=== PATIENT | male | born 1970 | race Caucasian/White ===

== ENCOUNTER 2020-01-02 21:12 | Emergency (ER) | payer BC, OTHER, SELFPAY ==
--- NOTE | ~2020-01-02 | CT_ITS ---
EXAMINATION: CT abdomen pelvis w con DATE: 01/02/2020 22:58 INDICATION: Left lower quadrant abdominal pain. TECHNIQUE: Computed tomography (CT) of the abdomen and pelvis was performed with 100 mL Omnipaque 350 intravenous contrast. Automated exposure control and iterative reconstruction technique were employe d. The dose-length product was 1425.99 mGy-cm. COMPARISON: Chest CT 08/28/2018 FINDINGS: The visualized portions of the lung bases demonstrate mild atelectasis. No pleural effusion . The heart size is normal. No pericardial effusion. The liver and spleen are normal. The changes of cholecystectomy. The pancreas and right adrenal gland are normal. There is a 1.9 cm mass in left adre nal gland without change in size, likely an adenoma. There are cysts in the kidneys measuring up to 1 .7 cm on the left. There are 2 stones in left kidney with the larger measuring 1.4 cm. There are scat tered diverticula in the colon. There is wall thickening of sigmoid colon with surrounding fat strand ing, consistent with diverticulitis. The appendix is normal. There are no dilated loops of bowel. The re are no pathologically enlarged lymph nodes. There is no free intraperitoneal fluid. There is mild lumbar spondylosis. IMPRESSION: 1. Acute sigmoid diverticulitis. No perforation or abscess. Reviewed, dictated and finalized at location A. [employer]
[2020-01-02 21:16] VITALS: BP 158/103; PULSE 108; RESP 14; TEMP 37.3; O2SAT 99
[2020-01-02 21:44] LABS: Basophils Absolute Auto 0.1 K/mm3 (0.0-0.1); Basophils Percent Auto 0.3 % (0.2-1.2); Eosinophils Absolute Auto 0.1 K/mm3 (0-0.3); Eosinophils Percent Auto 0.9 % (0-4.4); Hematocrit 48.2 % (42.0-52.0); Hemoglobin 16.8 g/dL (14.0-18.0); Immature Granulocyte Absolute 0.06 K/mm3 (0.00-0.031); Immature Granulocyte Percent A 0.4 % (0-0.5); Lymphocytes Absolute Auto 1.69 K/mm3 (0.9-3.2); Lymphocytes Percent Auto 11.6 % (18.3-44.2); Mean Corpuscular HGB Conc 34.9 g/dl (32-36); Mean Corpuscular Volume 86.1 fl (80-100); Mean Platelet Volume 8.5 fl (7.4-10.4); Monocytes Absolute Auto 1.3 K/mm3 (0.1-0.6); Monocytes Percent Auto 8.7 % (2.6-8.5); Neutrophils Absolute Auto 11.3 K/mm3 (1.3-6.7); Neutrophils Percent Auto 78.1 % (45.5-73.1); Platelet Count Result 278 k/mm3 (150-375); Red Cell Distribution Width 13.9 % (11.5-14.5); White Blood Count 14.5 K/mm3 (4.5-10.0)
[2020-01-02] MEDS: SODIUM CHLORIDE 0.9% IV 1,000 ML 999 ML IV CONT (21:45)
[2020-01-02 21:46] LABS: Add Urine Microscopic? NO; Appearance Urine Clear (Clear); Bilirubin Urine Negative (Negative); Blood Urine Negative (Negative); Color Urine Yellow (Yellow); Glucose Urine UA Negative (Negative); Ketones Urine Negative (Negative); Leukocyte Esterase Ur Negative LEU/UL (Negative); Nitrate Urine Negative (Negative); Protein Urine Negative (Negative); Specific Grav Ur 1.015 (1.001-1.035); Urobilinogen Urine Negative mg/dL (<2.0)
[2020-01-02 21:56] LABS: Alanine Aminotransferase 43 U/L (4-50); Albumin Level 4.2 g/dL (3.5-5.1); Alkaline Phosphatase 87 U/L (38-126); Anion Gap 10 mmol/L (8-16); Aspartate Amino Transferase 35 U/L (17-59); Bilirubin,Total 0.8 mg/dL (0.2-1.3); Blood Urea Nitrogen 11 mg/dL (9-20); Calcium 9.3 mg/dL (8.4-10.2); Carbon Dioxide 28 mmol/L (22-30); Chloride 101 mmol/L (98-107); Estimated CRCL calculation 94 ml/min; Estimated Glomerular Filt Rate > 60; Glucose 146 mg/dL (75-110); Lipase 222 U/L (23-300); Potassium 3.4 mmol/L (3.4-5.0); Sodium 139 mmol/L (137-145)
--- NOTE | 2020-01-02 23:49 | ED.ABDPAIN ---
HPI - Abdominal Pain General Chief Complaint: Abdominal Pain Stated Complaint: abd pain Time Seen by Provider: 01/02/20 21:19 History of Present Illness HPI narrative: Patient is a 49-year-old gentleman who presents to emergency department chief complaint of left lower quadrant abdominal pain. Patient states the pain began today states it has gotten worse feels as though his abdomen is somewhat full and states is more in the suprapubic type area but does radiate to his left lower quadrant. The patient denies diarrhea states that he took a laxative and also fiber and has had a bowel movement since then. Patient denies vomiting reports that he had no prior history of diverticulitis. Patient does report that he has had repair of a hernia in the past. Related Data Home Medications Medication Instructions Recorded Confirmed atorvastatin 80 mg tablet 80 mg PO DAILY 03/03/19 08/27/19 ezetimibe 10 mg tablet 10 mg PO DAILY 03/03/19 08/27/19 metoprolol succinate 25 mg 12.5 mg PO DAILY tablet 03/03/19 08/27/19 tablet,extended release 24 hr ticagrelor 90 mg tablet 90 mg PO BID tablet 03/03/19 08/27/19 valacyclovir 500 mg tablet 1,000 mg PO DAILY PRN tablet 03/03/19 08/27/19 testosterone cypionate 200 mg/mL 200 mg IM WEEKLY ml 08/27/19 08/27/19 intramuscular oil Allergies Allergy/AdvReac Type Severity Reaction Status Date / Time Sulfa (Sulfonamide Allergy Unknown Unknown Verified 08/27/19 13:38 Antibiotics) Review of Systems Review of Systems: Narrative: CONSTITUTIONAL: Denies fever, chills, or sweats. EYES: Denies visual changes, redness, or discharge. ENT: Denies rhinorrhea, congestion, sore throat, or otalgia. CARDIOVASCULAR: Denies chest pain, palpitations, or edema. RESPIRATORY: Denies cough or dyspnea. GASTROINTESTINAL: Denies abdominal pain, nausea, vomiting, or diarrhea. GENITOURINARY: Denies dysuria or hematuria. SKIN: Denies rash or itching. MUSCULOSKELETAL: Denies back pain, joint pain, or myalgia. NEUROLOGIC: Denies headache, numbness, or weakness. PSYCHIATRIC: Denies anxiety or depression. A 10 system review of systems was completed on the patient and is negative except for what is stated in the HPI. Nursing and ancillary documentation was reviewed. [facility] Past Medical History Medical History (Updated 01/02/20 @ 23:52 by Ruddy Olson MD) Abnormal weight gain AC joint arthropathy CAD in [place] artery Depression Essential (primary) hypertension GERD (gastroesophageal reflux disease) Heart attack (~2018) Hernia (~2014) Hypertension Intractable migraine without aura and without status migrainosus Migraines PTSD (post-traumatic stress disorder) Recurrent herpes labialis Sensitivity to sunlight Tinnitus Surgical History Surgical History History of cholecystectomy (~2014) History of eye surgery (~08/2004) PRK lasir History of facial surgery (~2016) chin reconstruction History of right knee joint replacement (~2012) History of rotator cuff surgery (~2007) left Hx of cardiac cath (~08/2018) Family History Family History Mother Diabetes mellitus Atrial fibrillation Father Hypertension Family history of alcoholism Family history of cardiovascular disease Family history of primary malignant neoplasm of liver Family history of throat cancer Grandparent Family history of cardiovascular disease Diabetes mellitus Social History Social History Smoking status: Never smoker Second hand tobacco smoke exposure: No Alcohol intake: current Substance use: never Substance use type: does not use Gender identity (if verbalized by the patient): Male Exam Narrative: Exam Narrative: GENERAL: Well-appearing, well-nourished, and in no acute distress. HEAD: Normocephalic, atraumatic. EY
[2020-01-02] MEDS: metroNIDAZOLE 250 MG TABLET 500 MG PO (23:56)
[2020-01-02] MEDS: CIPROFLOXACIN 500 MG TAB PO (23:56)
[2020-01-02] MEDS: HYDROcodone/acetaminophen (*CRX) 5-325 MG TABLET 2 TAB PO (23:57)
[2020-01-03 00:03] VITALS: BP 149/89; PULSE 78; RESP 16; TEMP 36.8; O2SAT 99
[2020-01-03 00:17] VITALS: TEMP 36.8
== END 2020-01-03 00:10 | disposition home or self-care (01) ==
PROVIDERS: Emergency Provider Emergency Medicine; PCP Family Medicine
DX: K57.32 Diverticulitis of large intestine without perforation or abscess without bleeding (principal); I25.10 Atherosclerotic heart disease of native coronary artery without angina pectoris; I10 Essential (primary) hypertension; K21.9 Gastro-esophageal reflux disease without esophagitis; I25.2 Old myocardial infarction; Z96.651 Presence of right artificial knee joint
CPT/HCPCS: 36415; 74177; 80053; 81003; 83690; 85025; 96360; 99284; A9270; J7030; Q9967

== ENCOUNTER 2020-05-14 20:25 | Emergency (ER) | payer BC, OTHER, SELFPAY ==
--- NOTE | ~2020-05-14 | XR_ITS ---
EXAMINATION: XR knee RT 3V DATE: 05/14/2020 21:28 INDICATION: Right knee pain TECHNIQUE: Three views of the right knee were obtained. COMPARISON: None. FINDINGS: There are changes of total knee arthroplasty. No fracture is identified. There is mild soft tissue swelling of the knee. IMPRESSION: 1. No acute osseous abnormality. Reviewed, dictated and finalized at location A.
[2020-05-14 20:42] VITALS: BP 163/103; PULSE 75; RESP 16; TEMP 36.4; O2SAT 97
--- NOTE | 2020-05-14 21:40 | ED.LOWEXIN ---
HPI - Extremity Injury (Lower) General Chief Complaint: Extremity Injury, Lower Stated Complaint: right knee replacement pain Time Seen by Provider: 05/14/20 21:19 Source: patient Mode of arrival: ambulatory Limitations: no limitations History of Present Illness HPI Narrative: Patient is a 50-year-old male complaining of right knee pain after it locked while trying to cross his legs prior to arrival. Patient states that he has difficulty bending his knee. Patient states he is unable to bear weight due to the pain. Patient denies any other pain or injuries. Patient states that he had a right knee replacement years ago. Related Data Home Medications Medication Instructions Recorded Confirmed atorvastatin 80 mg tablet 80 mg PO DAILY 03/03/19 01/22/20 ezetimibe 10 mg tablet 10 mg PO DAILY 03/03/19 01/22/20 metoprolol succinate 25 mg 12.5 mg PO DAILY tablet 03/03/19 01/22/20 tablet,extended release 24 hr ticagrelor 90 mg tablet 90 mg PO BID tablet 03/03/19 01/22/20 valacyclovir 500 mg tablet 1,000 mg PO DAILY PRN tablet 03/03/19 01/22/20 testosterone cypionate 200 mg/mL 200 mg IM WEEKLY ml 08/27/19 01/22/20 intramuscular oil Allergies Allergy/AdvReac Type Severity Reaction Status Date / Time Sulfa (Sulfonamide Allergy Unknown Unknown Verified 08/27/19 13:38 Antibiotics) Review of Systems Review of Systems: All systems reviewed & are unremarkable except as noted in HPI and below PMFSH Past Medical History Medical History Abnormal weight gain AC joint arthropathy CAD in [place] artery Depression Essential (primary) hypertension GERD (gastroesophageal reflux disease) Heart attack (~2018) Hernia (~2014) Hypertension Intractable migraine without aura and without status migrainosus Migraines PTSD (post-traumatic stress disorder) Recurrent herpes labialis Sensitivity to sunlight Tinnitus Surgical History Surgical History History of cholecystectomy (~2014) History of eye surgery (~08/2004) PRK lasir History of facial surgery (~2016) chin reconstruction History of right knee joint replacement (~2012) History of rotator cuff surgery (~2007) left Hx of cardiac cath (~08/2018) Family History Family History Mother Diabetes mellitus Atrial fibrillation Father Hypertension Family history of alcoholism Family history of cardiovascular disease Family history of primary malignant neoplasm of liver Family history of throat cancer Grandparent Family history of cardiovascular disease Diabetes mellitus Social History Social History Smoking status: Never smoker Second hand tobacco smoke exposure: No Alcohol intake: current Substance use: never Substance use type: does not use Gender identity (if verbalized by the patient): Male Exam Const: General: no acute distress and alert Orientation/consciousness: patient oriented x3 HENMT: Head: normal to inspection Eyes: Conjunctivae: conjunctivae normal Neck: Neck: normal visual inspection Skin: General skin exam: normal color Rashes: no rashes Neuro: General: patient oriented x3 Extrem: Other: Right knee swelling, decreased range of motion due to pain, pain on palpation of the right knee, neurovascularly intact Course Vital Signs Vital signs: Vital Signs Temperature 36.4 C L 05/14/20 20:42 Pulse Rate 75 05/14/20 20:42 Respiratory Rate 16 05/14/20 20:42 Blood Pressure 163/103 H 05/14/20 20:42 Pulse Oximetry 97 05/14/20 20:42 Temperature 36.4 C L 05/14/20 20:42 Pulse Rate 75 05/14/20 20:42 Respiratory Rate 16 05/14/20 20:42 Blood Pressure 163/103 H 05/14/20 20:42 Pulse Oximetry 97 05/14/20 20:42 MDM - Extremity Injury (Lower) MDM Narrative Medical decision catina
[2020-05-14] MEDS: HYDROcodone/acetaminophen (*CRX) 7.5-325 MG TABLET 1 TAB PO (21:56)
[2020-05-14] MEDS: diazePAM INJ (*CRX) 10 MG/2 ML SYRINGE 5 MG IM (21:56)
[2020-05-14] MEDS: KETOROLAC 30 MG/ML VIAL (*BKC) IM (21:57)
[2020-05-14 22:59] VITALS: BP 155/89; PULSE 77; RESP 20; O2SAT 97
== END 2020-05-14 23:01 | disposition home or self-care (01) ==
PROVIDERS: Emergency Provider Emergency Medicine; PCP Family Medicine
DX: S86.911A Strain of unspecified muscle(s) and tendon(s) at lower leg level, right leg, initial encounter (principal); I25.10 Atherosclerotic heart disease of native coronary artery without angina pectoris; I10 Essential (primary) hypertension; K21.9 Gastro-esophageal reflux disease without esophagitis; I25.2 Old myocardial infarction; Z96.651 Presence of right artificial knee joint; X50.9XXA Other and unspecified overexertion or strenuous movements or postures, initial encounter
CPT/HCPCS: 73562; 96372; 99284; A9270; J1885; J3360

== ENCOUNTER 2020-10-04 05:17 | Inpatient (IN) | payer BC, OTHER, SELFPAY ==
[2020-10-04] VITALS (8 sets, daily range): BP systolic 122–172; BP diastolic 69–97; PULSE 63–70; RESP 15–18; TEMP 36.3–36.9; O2SAT 93–98; BMI 39.2
--- NOTE | ~2020-10-04 | CT_ITS ---
EXAMINATION: CT abdomen pelvis w con INDICATION: Abdominal pain TECHNIQUE: Computed tomographic images of the abdomen and pelvis were obtained after the administrati on of 100 cc of Omnipaque 350 intravenous contrast. The dose-length product (DLP) was 1441.86 mGy-cm. Automated exposure control and iterative reconstruction technique were employed. COMPARISON: 01/02/2020 FINDINGS: The lung bases are clear. The heart size is normal. The gallbladder is surgically absent. T he liver, spleen, pancreas, and right adrenal gland are normal. There is a stable 1.9 cm mass of the left adrenal gland, most consistent with an adenoma. Cysts of the kidneys measure up to 1.6 cm on the left. There are nonobstructing stones measuring 3 mm and 15 mm in the left kidney. No pathologically enlarged abdominal or pelvic lymph nodes are identified. There is diverticulosis of the colon. There is wall thickening of the sigmoid colon with edematous stranding of the adjacent perisigmoid fat. No perforation or abscess is identified. There are no dilated loops of bowel. There is a supraumbilical hernia containing fat. Mild lumbar spondylosis is noted. IMPRESSION: 1. Acute uncomplicated sigmoid diverticulitis. Reviewed, dictated and finalized at location A.
--- NOTE | 2020-10-04 05:30 | PC.NURSE ---
Pt unable to provide urine sample at this time, requesting more time to try. NS infusing, given call light.
[2020-10-04] MEDS: SODIUM CHLORIDE 0.9% IV 1,000 ML 999 ML IV CONT (05:41)
--- NOTE | 2020-10-04 05:46 | ED.GENADULT ---
HPI - General Adult General Chief complaint: Abdominal Pain Stated complaint: Abd pain, bright red blood in stool Time Seen by Provider: 10/04/20 05:25 Source: RN notes reviewed History of Present Illness HPI narrative: Patient presents emergency department from home for bright red blood in the stool. Patient states he had an episode of bright red blood in his stool this morning prior to arrival he states that he has a history of diverticulitis and starting 3 days ago he began to have pain in his lower mid pelvis that felt like his previous diverticulitis states at that time he went to a fiber diet he states he is never had blood in his stool before use was to follow-up with Dr. Garcia for a colonoscopy but has not been scheduled he denies any fevers or chills, chest pain shortness of breath or any other symptoms the patient is on Plavix and aspirin Related Data Home Medications Medication Instructions Recorded Confirmed atorvastatin 80 mg tablet 80 mg PO DAILY 03/03/19 01/22/20 ezetimibe 10 mg tablet 10 mg PO DAILY 03/03/19 01/22/20 metoprolol succinate 25 mg 12.5 mg PO DAILY tablet 03/03/19 01/22/20 tablet,extended release 24 hr ticagrelor 90 mg tablet 90 mg PO BID tablet 03/03/19 01/22/20 valacyclovir 500 mg tablet 1,000 mg PO DAILY PRN tablet 03/03/19 01/22/20 testosterone cypionate 200 mg/mL 200 mg IM WEEKLY ml 08/27/19 01/22/20 intramuscular oil Allergies Allergy/AdvReac Type Severity Reaction Status Date / Time Sulfa (Sulfonamide Allergy Unknown Unknown Verified 10/04/20 05:30 Antibiotics) Review of Systems Review of Systems: Gen.: Denies fevers or chills ENT: Denies congestion Respiratory: Denies shortness of breath or cough CV: Denies chest pain or palpitations GI: See HPI denies burning, urgency, frequency or hematuria Musculoskeletal: Denies back pain or muscle pain Neuro: Denies numbness, tingling, weakness or focal weakness Skin: Denies rash Except as documented, all other systems reviewed and negative [facility] Past Medical History Medical History Abnormal weight gain AC joint arthropathy CAD in [place] artery Depression Essential (primary) hypertension GERD (gastroesophageal reflux disease) Heart attack (~2018) Hernia (~2014) Hypertension Intractable migraine without aura and without status migrainosus Migraines PTSD (post-traumatic stress disorder) Recurrent herpes labialis Sensitivity to sunlight Tinnitus Surgical History Surgical History History of cholecystectomy (~2014) History of eye surgery (~08/2004) PRK lasir History of facial surgery (~2016) chin reconstruction History of right knee joint replacement (~2012) History of rotator cuff surgery (~2007) left Hx of cardiac cath (~08/2018) Family History Family History Mother Diabetes mellitus Atrial fibrillation Father Hypertension Family history of alcoholism Family history of cardiovascular disease Family history of primary malignant neoplasm of liver Family history of throat cancer Grandparent Family history of cardiovascular disease Diabetes mellitus Social History Social History Smoking status: Never smoker Second hand tobacco smoke exposure: No Alcohol intake: current Alcohol use details: consumes 2 beers weekly Substance use: never Substance use type: does not use Gender identity (if verbalized by the patient): Male Exam Narrative: APPEARANCE: No acute distress, nontoxic, resting in bed HEENT: Normocephalic, atraumatic, OMM RESPIRATORY: No respiratory distress, clear to auscultation bilaterally with no rhonchi wheezing or rales CARDIOVASCULAR: RRR s murmur ABDOMINAL: Soft nondistended tender to palpation in mid lower abdomen no tenderness right upper quadra
[2020-10-04 05:50] LABS: Basophils Absolute Auto 0.1 K/mm3 (0.0-0.1); Basophils Percent Auto 0.8 % (0.2-1.2); Eosinophils Absolute Auto 0.2 K/mm3 (0-0.3); Eosinophils Percent Auto 2.3 % (0-4.4); Hematocrit 47.9 % (42.0-52.0); Hemoglobin 16.4 g/dL (14.0-18.0); Immature Granulocyte Absolute 0.04 K/mm3 (0.00-0.031); Immature Granulocyte Percent A 0.5 % (0-0.5); Lymphocytes Absolute Auto 1.46 K/mm3 (0.9-3.2); Lymphocytes Percent Auto 18.4 % (18.3-44.2); Mean Corpuscular HGB Conc 34.2 g/dl (32-36); Mean Corpuscular Hemoglobin 30.8 pg (26-34); Mean Corpuscular Volume 89.9 fl (80-100); Mean Platelet Volume 8.9 fl (7.4-10.4); Monocytes Absolute Auto 0.7 K/mm3 (0.1-0.6); Monocytes Percent Auto 9.3 % (2.6-8.5); Neutrophils Absolute Auto 5.5 K/mm3 (1.3-6.7); Neutrophils Percent Auto 68.7 % (45.5-73.1); Platelet Count Result 214 k/mm3 (150-375); Red Blood Count 5.33 M/mm3 (4.6-6.20); Red Cell Distribution Width 13.5 % (11.5-14.5); White Blood Count 7.9 K/mm3 (4.5-10.0)
[2020-10-04 05:58] LABS: Alanine Aminotransferase 19 U/L (4-50); Albumin Level 4.1 g/dL (3.5-5.1); Alkaline Phosphatase 81 U/L (38-126); Anion Gap 8 mmol/L (8-16); Aspartate Amino Transferase 30 U/L (17-59); Bilirubin,Total 0.8 mg/dL (0.2-1.3); Blood Urea Nitrogen 12 mg/dL (9-20); Calcium 8.9 mg/dL (8.4-10.2); Carbon Dioxide 23 mmol/L (22-30); Chloride 104 mmol/L (98-107); Estimated CRCL calculation 109 ml/min; Estimated Glomerular Filt Rate > 60; Glucose 97 mg/dL (65-110); Lipase 253 U/L (23-300); Potassium 3.5 mmol/L (3.4-5.0); Sodium 135 mmol/L (137-145)
[2020-10-04 06:02] LABS: INR 0.9; Prothrombin Time 12.5 Seconds (11.1-14.7)
[2020-10-04 06:03] LABS: Partial Thromboplastin Time 26.6 SECONDS (22.3-36.8)
--- NOTE | 2020-10-04 06:19 | PC.NURSE ---
Pt to CT scan via stretcher
[2020-10-04 06:21] LABS: Lactic Acid Reflex 0.8 mmol/L (0.7-2.1)
[2020-10-04 07:22] LABS: Add Urine Microscopic? YES; Appearance Urine Clear (Clear); Bilirubin Urine Negative (Negative); Blood Urine Negative (Negative); Color Urine Yellow (Yellow); Glucose Urine UA Negative (Negative); Ketones Urine Trace mg/dL (Negative); Leukocyte Esterase Ur Negative LEU/UL (Negative); Mucus Urine Rare /lpf; Nitrate Urine Negative (Negative); Protein Urine Negative (Negative); Specific Grav Ur 1.049 (1.001-1.035); Squamous Epithelial Cell Urine Rare /hpf (Few)
--- NOTE | 2020-10-04 10:15 | PM.IMHP ---
H&P: HPI History of Present Illness Date/Time: 10/04/20 10:15 Chief Complaint: Bright red blood per rectum Narrative: This is pleasant annual gentleman with past medical history hypertension, coronary disease after [place] in 2019 status post stenting, is on Plavix and aspirin, history of diverticulitis, who presented this morning when he noticed bright red blood per rectum, mostly on wiping. He denies any history of hemorrhoids. Three days ago he started having pain in the mid abdomen below the umbilicus. [place] like his prior diverticulitis. However only noticed the blood this morning. Denies any diarrhea, constipation, nausea, vomiting, shortness breath, chest pain, fevers or otherwise. CT scan of the abdomen emergency depart showed acute uncomplicated sigmoid diverticulitis. Lab work showed hemoglobin 16.4, normal WBC and platelets. Creatinine 0.9. Sodium 135, potassium 3.5, creatinine 1.1. He was hemodynamically stable, blood pressure 135/81, heart rate 63, saturating 97% on room air. Gastroenterology was consulted in the emergency department. Review of Systems Review of Systems: All systems reviewed & are unremarkable except as noted in HPI and below PMFSH Past Medical History Medical History Abnormal weight gain AC joint arthropathy CAD in [place] artery Depression Essential (primary) hypertension GERD (gastroesophageal reflux disease) Heart attack (~2018) Hernia (~2014) Hypertension Intractable migraine without aura and without status migrainosus Migraines PTSD (post-traumatic stress disorder) Recurrent herpes labialis Sensitivity to sunlight Tinnitus Surgical History Surgical History History of cholecystectomy (~2014) History of eye surgery (~08/2004) PRK lasir History of facial surgery (~2016) chin reconstruction History of right knee joint replacement (~2012) History of rotator cuff surgery (~2007) left Hx of cardiac cath (~08/2018) Family History Family History Mother Diabetes mellitus Atrial fibrillation Father Hypertension Family history of alcoholism Family history of cardiovascular disease Family history of primary malignant neoplasm of liver Family history of throat cancer Grandparent Family history of cardiovascular disease Diabetes mellitus Social History Social History Smoking packs per day: 0.5 Smoking cigarettes per day: 10.0 Years smoked: 12 Smoking pack-years: 6.00 Smoking status: Former smoker Tobacco type: cigarettes Second hand tobacco smoke exposure: No Smoking end date: 02/05/09 Alcohol intake: current Alcohol use details: consumes 2 beers weekly Substance use: never Substance use type: does not use Gender identity (if verbalized by the patient): Male Spiritual care concerns: No Meds Home Medications and Allergies Home Medications Medication Instructions Recorded Confirmed Type atorvastatin 80 mg tablet 80 mg PO HS 03/03/19 10/04/20 History ezetimibe 10 mg tablet 10 mg PO DAILY 03/03/19 10/04/20 History metoprolol succinate 25 mg 12.5 mg PO DAILY tablet 03/03/19 10/04/20 History tablet,extended release 24 hr valacyclovir 500 mg tablet 1,000 mg PO DAILY PRN tablet 03/03/19 10/04/20 History testosterone cypionate 200 mg/mL 300 mg IM WEEKLY ml 08/27/19 10/04/20 History intramuscular oil aspirin 81 mg PO DAILY 10/04/20 10/04/20 History clopidogrel [Plavix] 75 mg PO DAILY 10/04/20 10/04/20 History Allergies Allergy/AdvReac Type Severity Reaction Status Date / Time Sulfa (Sulfonamide Allergy Unknown Swelling Verified 10/04/20 09:45 Antibiotics) of Lip/Tongue/Throat Vital Signs Vital Signs - 24 hr 10/04/20 05:27 10/04/20 08:35 10/04/20 09:22 Temperature 98.5 F 98 F
--- NOTE | 2020-10-04 10:33 | PC.NURSE ---
ADMISSION NOTE. PT RECEIVED ALERT AND ORIENTED X3. ORIENTED TO ROOM AND CONTROLS
[2020-10-04] MEDS: SODIUM CHLORIDE 0.9% IV 1,000 ML 125 ML IV CONT ×2 (10:40→19:03)
[2020-10-04 10:41] LABS: Hematocrit 45.6 % (42.0-52.0); Hemoglobin 15.2 g/dL (14.0-18.0)
[2020-10-04] MEDS: LORazepam INJ (*CRX) 2 MG/ML VIAL 1 MG IV PUSH (11:35)
[2020-10-04 17:04] LABS: Hematocrit 45.8 % (42.0-52.0); Hemoglobin 15.4 g/dL (14.0-18.0)
--- NOTE | 2020-10-04 17:24 | WPDGICN ---
Assessment and Plan Assessment and plan (1) Diverticulitis of sigmoid colon: Code(s): K57.32 - Diverticulitis of large intestine without perforation or abscess without bleeding Status: Acute Assessment and Plan: started on iv antibiotics, second episode liquid diet for now and advance tomorrow as tolerated he will need colonoscopy in 6-8 weeks when acute flare-up completely gone (my office will set up) (2) Rectal bleeding: Code(s): K62.5 - Hemorrhage of anus and rectum Status: Acute Assessment and Plan: probably from acute diverticulitis he is hemodynamically stable and hb is normal no need of endoscopic intervention in setting of acute diverticulitis, most likely will stop without intervention and just with medical treatment (3) CAD in [place] artery: Code(s): I25.10 - Atherosclerotic heart disease of [place] coronary artery without angina pectoris Status: Acute (4) Hypertension: Code(s): I10 - Essential (primary) hypertension Status: Acute GI Consult Note Consult date/time: 10/04/20 17:24 Reason for consult: diverticulitis, rectal bleeding. HPI: Michael Goldstein is a 50 year old male with history of CAD with stent placement 1.5 year ago on aspirin and plavix), HTN who I met for the first time last year in the office after he presented for episode of sigmoid diverticulitis treated medically. He was supposed to schedule colonoscopy but has not had the chance (never had colonoscopy). Here with 3 days of pain in lower mid pelvis, moderate intensity that felt like his previous diverticulitis but this morning had one episode of bright red blood in his stool. CT scan reviewed, uncomplicated sigmoid diverticulitis, h/h stable and normal. No fever, abdominal pain is better. No h/o GIB. Review of Systems Constitutional: Constitutional: Denies chills Eyes: Eyes: Reports no additional eye complaints ENT: Reports Normal hearing present Cardiovascular: Cardiovascular: Reports no additional cardiovascular complaints Respiratory: Respiratory: Reports no additional respiratory complaints Gastrointestinal: Gastrointestinal: Reports abdominal pain and Reports hematochezia Genitourinary: Genitourinary: Denies dysuria Musculoskeletal: Musculoskeletal: Denies neck pain Integumentary/Breasts: Skin/Breast: Denies dry skin Neurologic: Denies headache(s) Psychiatric: Psychiatric: Reports no additional psychiatric complaints [facility] Past Medical History Medical History (Updated 10/04/20 @ 17:29 by Ad Warner MD) Abnormal weight gain AC joint arthropathy CAD in [place] artery Depression Essential (primary) hypertension GERD (gastroesophageal reflux disease) Heart attack (~2018) Hernia (~2014) Hypertension Intractable migraine without aura and without status migrainosus Migraines PTSD (post-traumatic stress disorder) Rectal bleeding Recurrent herpes labialis Sensitivity to sunlight Tinnitus Surgical History Surgical History History of cholecystectomy (~2014) History of eye surgery (~08/2004) PRK lasir History of facial surgery (~2016) chin reconstruction History of right knee joint replacement (~2012) History of rotator cuff surgery (~2007) left Hx of cardiac cath (~08/2018) Family History Family History Mother Diabetes mellitus Atrial fibrillation Father Hypertension Family history of alcoholism Family history of cardiovascular disease Family history of primary malignant neoplasm of liver Family history of throat cancer Grandparent Family history of cardiovascular disease Diabetes mellitus Social History Social History Smoking packs per day: 0.5 Smoking cigarettes per day: 10.0 Years smoked: 12 Smoking pack-years: 6.00 Smoking status: Former s
[2020-10-04] MEDS: ATORVASTATIN 40 MG TABLET 80 MG PO (20:38)
[2020-10-04 22:07] LABS: Hematocrit 46.3 % (42.0-52.0); Hemoglobin 15.4 g/dL (14.0-18.0)
[2020-10-05 02:05] VITALS: RESP 18
[2020-10-05] MEDS: SODIUM CHLORIDE 0.9% IV 1,000 ML 125 ML IV CONT (04:37)
[2020-10-05 06:00] VITALS: BP 131/75; PULSE 62; RESP 18; TEMP 36.1; O2SAT 96
[2020-10-05 07:06] LABS: Basophils Absolute Auto 0.1 K/mm3 (0.0-0.1); Basophils Percent Auto 0.8 % (0.2-1.2); Eosinophils Absolute Auto 0.1 K/mm3 (0-0.3); Hematocrit 46.3 % (42.0-52.0); Hemoglobin 15.5 g/dL (14.0-18.0); Immature Granulocyte Absolute 0.02 K/mm3 (0.00-0.031); Immature Granulocyte Percent A 0.3 % (0-0.5); Lymphocytes Absolute Auto 1.18 K/mm3 (0.9-3.2); Lymphocytes Percent Auto 18.1 % (18.3-44.2); Mean Corpuscular HGB Conc 33.5 g/dl (32-36); Mean Corpuscular Hemoglobin 29.9 pg (26-34); Mean Corpuscular Volume 89.4 fl (80-100); Monocytes Absolute Auto 0.6 K/mm3 (0.1-0.6); Monocytes Percent Auto 9.5 % (2.6-8.5); Neutrophils Absolute Auto 4.5 K/mm3 (1.3-6.7); Neutrophils Percent Auto 69.3 % (45.5-73.1); Platelet Count Result 232 k/mm3 (150-375); Red Blood Count 5.18 M/mm3 (4.6-6.20); Red Cell Distribution Width 13.3 % (11.5-14.5); White Blood Count 6.5 K/mm3 (4.5-10.0)
[2020-10-05 07:21] LABS: Alanine Aminotransferase 17 U/L (4-50); Albumin Level 3.8 g/dL (3.5-5.1); Alkaline Phosphatase 71 U/L (38-126); Anion Gap 8 mmol/L (8-16); Aspartate Amino Transferase 34 U/L (17-59); Bilirubin,Total 1.1 mg/dL (0.2-1.3); Blood Urea Nitrogen 8 mg/dL (9-20); Calcium 8.7 mg/dL (8.4-10.2); Carbon Dioxide 24 mmol/L (22-30); Chloride 103 mmol/L (98-107); Estimated CRCL calculation 101 ml/min; Estimated Glomerular Filt Rate > 60; Glucose 90 mg/dL (65-110); Sodium 135 mmol/L (137-145)
--- NOTE | 2020-10-05 08:41 | PM.DS ---
DS: Admitting Diagnosis Admitting Diagnosis Abdominal pain Blood in stool DS: Discharge Diagnosis Discharge Diagnosis (1) Diverticulitis of sigmoid colon: Code(s): K57.32 - Diverticulitis of large intestine without perforation or abscess without bleeding Status: Acute (2) GI bleed: Code(s): K92.2 - Gastrointestinal hemorrhage, unspecified Status: Acute (3) CAD in [place] artery: Code(s): I25.10 - Atherosclerotic heart disease of [place] coronary artery without angina pectoris Status: Acute DS: Summary Hospital Course Hospital Course: This is a very pleasant 50-year-old gentleman past medical history of hypertension, coronary artery disease, and history of diverticulitis who presented to the emergency department on 09/24 with bright red blood rectum 1 episode, in addition to bilateral lower quadrant abdominal pain. He was found to be hemodynamically stable and in the emergency department CT scan of the abdomen showed evidence of acute uncomplicated sigmoid diverticulitis. Hemoglobin on presentation was 16.5. He was admitted to the hospital for close monitoring. He was initiated on Zosyn. His abdominal pain subsided. He did not have any further episodes blood in the stools. His hemoglobin stabilized in 15 range. Initially NPO then tolerated clear liquid diet. He was seen by gastroenterology who recommended follow-up in 6-8 weeks for colonoscopy once the inflammation subsides. His home medications were resumed except Plavix which was held for 1 day, but given his GI bleed has resolved likely is related to inflammation of his colon, this should be resumed on discharge. He will have a 10 day course of oral antibiotics with ciprofloxacin and Flagyl. Time Spent with Patient Time attestation: Total time spent providing and/or coordinating discharge services: 28 min Exam Narrative: Gen: Alert, NAD Abd: Soft, NT, ND Heart: RRR Lungs: CTAB Ext: No lower extremity edema DS: Data Data Completed and Pending Labs on day of discharge: Labs from last 24 hours 10/05/20 10/05/20 10/04/20 06:12 06:12 21:42 WBC 6.5 RBC 5.18 Hgb 15.5 15.4 Hct 46.3 46.3 MCV 89.4 MCH 29.9 MCHC 33.5 RDW 13.3 Plt Count 232 MPV 9.0 Immature Gran % (Auto) 0.3 Neut % (Auto) 69.3 Lymph % (Auto) 18.1 L [place] % (Auto) 9.5 H Eos % (Auto) 2.0 Baso % (Auto) 0.8 Lymph # (Auto) 1.18 [place] # (Auto) 0.6 Eos # (Auto) 0.1 Baso # (Auto) 0.1 Abs Immat Gran (auto) 0.02 Absolute Neuts (auto) 4.5 Absolute Nucleated RBC 0.0 Nucleated RBC % 0.0 Sodium 135 L Potassium 4.0 Chloride 103 Carbon Dioxide 24 Anion Gap 8 BUN 8 L Creatinine 1.20 Estim Creat Clear Calc 101 Estimated GFR > 60 Glucose 90 Calcium 8.7 Total Bilirubin 1.1 AST 34 ALT 17 Alkaline Phosphatase 71 Total Protein 7.0 Albumin 3.8 Blood Type Antibody Screen 10/04/20 10/04/20 10/04/20 16:49 10:25 06:03 WBC RBC Hgb 15.4 15.2 Hct 45.8 45.6 MCV MCH MCHC RDW Plt Count MPV Immature Gran % (Auto) Neut % (Auto) Lymph % (Auto) [place] % (Auto) Eos % (Auto) Baso % (Auto) Lymph # (Auto) [place] # (Auto) Eos # (Auto) Baso # (Auto) Abs Immat Gran (auto) Absolute Neuts (auto) Absolute Nucleated RBC Nucleated RBC % Sodium Potassium Chloride Carbon Dioxide Anion Gap BUN Creatinine Estim Creat Clear Calc Estimated GFR Glucose Calcium Total Bilirubin AST ALT Alkaline Phosphatase Total Protein Albumin Blood Type B Positive Antibody Screen Negative Discharge Plan Discharge Consulting providers: Ad Warner Discharging Clinician: lorna Anticipated Discharge Date/Time: 10/05/20 08:46 Patient Disposition: Home, Self-Care Activity: as tolerated Diet: other - see
[2020-10-05 09:12] VITALS: PULSE 65
[2020-10-05] MEDS: METOPROLOL SUCCINATE EXT REL 12.5 MG TABCR PO (09:12)
[2020-10-05] MEDS: ASPIRIN 81 MG ENTERIC TABLET PO (09:12)
[2020-10-05] MEDS: EZETIMIBE 10 MG TABLET PO (09:13)
== END 2020-10-05 10:17 | disposition home or self-care (01) | DRG 379 ==
LOC: ANHED 07:19 → ANH3MEDSUR 09:10
PROVIDERS: Admitting Provider Internal Medicine Nephrology; Emergency Provider Emergency Medicine; PCP Family Medicine; Visit Provider Internal Medicine Nephrology
DX: K57.33 Diverticulitis of large intestine without perforation or abscess with bleeding (principal); I25.10 Atherosclerotic heart disease of native coronary artery without angina pectoris; I10 Essential (primary) hypertension; K21.9 Gastro-esophageal reflux disease without esophagitis; F43.10 Post-traumatic stress disorder, unspecified; F32.9 Major depressive disorder, single episode, unspecified; Z96.651 Presence of right artificial knee joint; Z90.49 Acquired absence of other specified parts of digestive tract; I25.2 Old myocardial infarction; Z79.02 Long term (current) use of antithrombotics/antiplatelets; Z79.82 Long term (current) use of aspirin; Z87.891 Personal history of nicotine dependence; Z95.5 Presence of coronary angioplasty implant and graft
CPT/HCPCS: 36415; 74177; 80053; 81001; 83605; 83690; 85014; 85018; 85025; 85610; 85730; 86850; 86900; 86901; 96361; 96365; 99285; A9270; G0378; J2060; J2543; J7030; Q9967

== ENCOUNTER 2021-07-10 19:42 | Emergency (ER) | payer OTHER, SELFPAY ==
--- NOTE | ~2021-07-10 | XR_ITS ---
EXAMINATION: XR chest 2V Exam Date/Time: 07/10/2021 20:20 CDT HISTORY: CP Comparison: 08/28/2018. RESULT: Lines, tubes, and devices: None. Lungs and pleura: Streaky opacities in the right lower lung likely atelectasis, otherwise clear. Cardiomediastinal silhouette: Stable cardiomediastinal silhouette. Other: No acute osseous or upper abdominal finding. IMPRESSION: No acute cardiopulmonary process. Reviewed, dictated and finalized at location [facility].
--- NOTE | 2021-07-10 19:44 | ECG_ITS ---
Measurements Intervals [place] Rate: 94 P: 34 MO: 124 QRS: -11 QRSD: 101 T: -10 QT: 340 QTc: 426 Interpretive Statements SINUS RHYTHM WITH OCCASIONAL SUPRAVENTRICULAR PREMATURE COMPLEXES MINIMAL VOLTAGE CRITERIA FOR LVH, CONSIDER NORMAL VARIANT [MEETS CRITERIA IN ONE OF: R(aVL), S(V1), R(V5), R(V5/V6)+S(V1)] NONSPECIFIC T-WAVE ABNORMALITY ABNORMAL ECG Electronically Signed On 07-11-2021 10:21:55 CDT by Danilo Kaplan M.D.
[2021-07-10 19:46] VITALS: BP 146/99; PULSE 101; RESP 18; TEMP 36.7; O2SAT 98
[2021-07-10 20:09] LABS: Basophils Absolute Auto 0.1 K/mm3 (0.0-0.1); Basophils Percent Auto 0.6 % (0.2-1.2); Eosinophils Absolute Auto 0.1 K/mm3 (0-0.3); Eosinophils Percent Auto 0.7 % (0-4.4); Hematocrit 50.5 % (42.0-52.0); Hemoglobin 17.4 g/dL (14.0-18.0); Immature Granulocyte Absolute 0.03 K/mm3 (0.00-0.031); Immature Granulocyte Percent A 0.2 % (0-0.5); Lymphocytes Absolute Auto 1.65 K/mm3 (0.9-3.2); Lymphocytes Percent Auto 13.6 % (18.3-44.2); Mean Corpuscular HGB Conc 34.5 g/dl (32-36); Mean Corpuscular Hemoglobin 30.7 pg (26-34); Mean Corpuscular Volume 89.2 fl (80-100); Mean Platelet Volume 8.9 fl (7.4-10.4); Monocytes Absolute Auto 0.9 K/mm3 (0.1-0.6); Monocytes Percent Auto 7.6 % (2.6-8.5); Neutrophils Absolute Auto 9.4 K/mm3 (1.3-6.7); Neutrophils Percent Auto 77.3 % (45.5-73.1); Platelet Count Result 207 k/mm3 (150-375); Red Blood Count 5.66 M/mm3 (4.6-6.20); Red Cell Distribution Width 13.2 % (11.5-14.5); White Blood Count 12.2 K/mm3 (4.5-10.0)
[2021-07-10 20:21] LABS: Prothrombin Time 13.1 Seconds (11.1-14.7)
[2021-07-10 20:22] LABS: Partial Thromboplastin Time 26.9 SECONDS (22.3-36.8)
[2021-07-10 20:34] LABS: Troponin I < 0.012 ng/mL (0.000-0.034)
[2021-07-10 20:43] LABS: Alanine Aminotransferase 35 U/L (6-50); Albumin Level 4.5 g/dL (3.5-5.1); Alkaline Phosphatase 85 U/L (38-126); Anion Gap 10 mmol/L (8-16); Aspartate Amino Transferase 37 U/L (17-59); Blood Urea Nitrogen 12 mg/dL (9-20); Calcium 9.6 mg/dL (8.4-10.2); Carbon Dioxide 23 mmol/L (22-30); Chloride 105 mmol/L (98-107); Estimated CRCL calculation 91 ml/min; Estimated Glomerular Filt Rate 58; Glucose 110 mg/dL (65-110); Lipase 203 U/L (23-300); Potassium 3.5 mmol/L (3.4-5.0); Sodium 138 mmol/L (137-145)
--- NOTE | 2021-07-10 20:57 | ED.CHESTPAIN ---
HPI - Chest Pain General Chief Complaint: Chest Pain Stated Complaint: Chest pain, racing heart Time Seen by Provider: 07/10/21 20:23 Source: patient History of Present Illness HPI narrative: Patient presents with chest pain pain is achy, constant has been present for approximately 2 days. Reports it started when he was lifting furniture up the stairs. Pain does radiate to his left shoulder denies any nausea or vomiting denies any shortness of breath denies any lightheadedness dizziness or diaphoresis. Reports prior ID with a stent in his LAD approximately 3 years ago today symptoms feel very different than time. Denies any recent hospitalizations or surgeries Related Data Home Medications Medication Instructions Recorded Confirmed atorvastatin 80 mg tablet 80 mg PO HS 03/03/19 11/30/20 ezetimibe 10 mg tablet 10 mg PO DAILY 03/03/19 11/30/20 metoprolol succinate 25 mg 12.5 mg PO DAILY 03/03/19 11/30/20 tablet,extended release 24 hr valacyclovir 500 mg tablet 1,000 mg PO DAILY PRN FEVER 03/03/19 11/30/20 BLISTERS testosterone cypionate 200 mg/mL 300 mg IM WEEKLY 08/27/19 11/30/20 intramuscular oil (Depo-Testosterone) aspirin 81 mg tablet,delayed 81 mg PO DAILY 10/04/20 11/30/20 release clopidogrel 75 mg tablet (Plavix) 75 mg PO DAILY 10/04/20 11/30/20 Adult One Daily Multivitamin 1 cap PO DAILY 11/30/20 11/30/20 cholecalciferol (vitamin D3) 25 25 mcg PO DAILY 11/30/20 11/30/20 mcg (1,000 unit) tablet (Vitamin D3) Allergies Allergy/AdvReac Type Severity Reaction Status Date / Time Sulfa (Sulfonamide Allergy Severe Swelling Verified 11/30/20 15:22 Antibiotics) of Lip/Tongue/Throat Review of Systems Review of Systems: CONSTITUTIONAL: Denies fever, chills, or sweats. EYES: Denies visual changes, redness, or discharge. ENT: Denies rhinorrhea, congestion, sore throat, or otalgia. CARDIOVASCULAR: Denies chest pain, palpitations, or edema. RESPIRATORY: Denies cough or dyspnea. GASTROINTESTINAL: Denies abdominal pain, nausea, vomiting, or diarrhea. GENITOURINARY: Denies dysuria or hematuria. SKIN: Denies rash or itching. MUSCULOSKELETAL: Denies back pain, joint pain, or myalgia. NEUROLOGIC: Denies headache, numbness, dizziness, or weakness. PSYCHIATRIC: Denies anxiety or depression. All systems reviewed & are unremarkable except as noted in HPI and below PMFSH Past Medical History Medical History Abnormal weight gain AC joint arthropathy CAD in [place] artery Depression Essential (primary) hypertension GERD (gastroesophageal reflux disease) Heart attack (~2018) Hernia (~2014) Hypertension Intractable migraine without aura and without status migrainosus Migraines PTSD (post-traumatic stress disorder) Rectal bleeding Recurrent herpes labialis Sensitivity to sunlight Tinnitus Surgical History Surgical History History of cholecystectomy (~2014) History of eye surgery (~08/2004) PRK lasir History of facial surgery (~2016) chin reconstruction History of right knee joint replacement (~2012) History of rotator cuff surgery (~2007) left Hx of cardiac cath (~08/2018) Family History Family History Mother Diabetes mellitus Atrial fibrillation Father Hypertension Family history of alcoholism Family history of cardiovascular disease Family history of primary malignant neoplasm of liver Family history of throat cancer Grandparent Family history of cardiovascular disease Diabetes mellitus Social History Social History Smoking packs per day: 0.5 Smoking cigarettes per day: 10.0 Years smoked: 3 Smoking pack-years: 1.50 Smoking status: Former smoker Tobacco type: cigarettes Second hand tobacco smoke exposure: No Smoking end date: 02/05/09 Alcohol intak
== END 2021-07-10 21:41 | disposition home or self-care (01) ==
PROVIDERS: Emergency Provider Emergency Medicine
DX: R07.9 Chest pain, unspecified (principal); I25.2 Old myocardial infarction; Z95.5 Presence of coronary angioplasty implant and graft; Z79.82 Long term (current) use of aspirin; I25.10 Atherosclerotic heart disease of native coronary artery without angina pectoris; I10 Essential (primary) hypertension; K21.9 Gastro-esophageal reflux disease without esophagitis; Z96.651 Presence of right artificial knee joint; Z87.891 Personal history of nicotine dependence; R94.31 Abnormal electrocardiogram [ECG] [EKG]
CPT/HCPCS: 36415; 71046; 80053; 83690; 84484; 85025; 85610; 85730; 93005; 99284